=== PATIENT | male | born 1960 | race Hispanic/Latino ===

== ENCOUNTER → 2024-05-12 | Outpatient (CLI) | payer OTHER ==
[~2024-05-12] MED LIST: ASPI-1197 PO; ATOR40TA71 PO; CETI-89 PO; FURO20TA6 PO; METO25 PO
== END | disposition home or self-care (01) ==
LOC: SHCH 09:38
PROVIDERS: ATTEND Internal Medicine Cardiovascular Disease
DX: I73.9 Peripheral vascular disease, unspecified (principal); R25.2 Cramp and spasm; R20.2 Paresthesia of skin
CPT/HCPCS: 93925